=== PATIENT | female | born 1975 | race Caucasian/White ===

== ENCOUNTER 2020-07-17 22:47 | Emergency (ER) | payer OTHER ==
[~2020-07-17 22:47] MED LIST: BACITRACIN15 GM TOP
[2020-07-18] MEDS ORDERED: MEDROL 4MG DOSEP4 MG PO (01:32)
[2020-07-18] MEDS ORDERED: IBUPROFEN800 MG PO (01:32)
[2020-07-18] MEDS ORDERED: CYCLOBENZAPRINE10 MG PO (01:32)
[2020-07-18] MEDS ORDERED: NORCO 5-325 TA1 EACH PO (01:32)
== END 2020-07-18 01:50 | disposition home or self-care (01) ==
LOC: FER 22:47
DX: S50.11XA Contusion of right forearm, initial encounter (principal); I10 Essential (primary) hypertension; V47.5XXA Car driver injured in collision with fixed or stationary object in traffic accident, initial encounter; Y92.410 Unspecified street and highway as the place of occurrence of the external cause
CPT/HCPCS: 73090; J7512